=== PATIENT | male | born 1955 | race Caucasian/White ===

== ENCOUNTER → 2016-11-17 | Outpatient (CLI) | payer OTHER ==
[~2016-11-17] MED LIST: ACETAMINOPHEN500 MG PO; METAMUCIL PACKE1 PKT PO; NOHOMEMEDS
== END | disposition home or self-care (01) ==
LOC: RAD 09:01
DX: Z02.71 Encounter for disability determination (principal)
CPT/HCPCS: 73501

== ENCOUNTER 2017-03-30 23:01 | Emergency (ER) | payer OTHER ==
[~2017-03-30] VITALS: Ht 188 cm; Wt 75.7 kg
[2017-03-31 00:28] VITALS: BP 157/86
== END 2017-03-31 00:30 | disposition home or self-care (01) ==
LOC: EME 23:01
DX: F10.10 Alcohol abuse, uncomplicated (principal); F12.10 Cannabis abuse, uncomplicated; F43.20 Adjustment disorder, unspecified; Z04.6 Encounter for general psychiatric examination, requested by authority; Z86.718 Personal history of other venous thrombosis and embolism; F17.200 Nicotine dependence, unspecified, uncomplicated
CPT/HCPCS: 80048; 85027; 90837; 99281; 99284; G0480